=== PATIENT | female | born 1940 | race Caucasian/White ===

== ENCOUNTER 2016-10-03 18:49 | Emergency (ER) | payer BC, MEDICARE ==
[2016-10-03 18:24] LABS: BASOPHILS 0.6 %; BASOPHILS ABSOLUTE 0.05 10/3/uL (0.0-0.16); EOSINOPHILS 1.9 %; EOSINOPHILS ABSOLUTE 0.17 10/3/uL (0.0-0.53); ER CBC TAT 0 Hrs 05 Mins; HEMOGLOBIN 9.1 g/dL (12.0-16.0); IMMATURE GRANULOCYTES 0.6 %; IMMATURE GRANULOCYTES ABSOLUTE 0.05 10/3/uL (0.0-0.11); LYMPHOCYTES 27.7 %; LYMPHOCYTES ABSOLUTE 2.45 10/3/uL (0.67-4.30); MEAN CORPUS HGB CONC 32.7 g/dL (32.0-36.0); MEAN CORPUSCULAR HEMOGLOB 29.4 pg (26.0-34.0); MEAN PLATELET VOLUME 10.9 fL (9.2-13.0); MONOCYTES 6.1 %; MONOCYTES ABSOLUTE 0.54 10/3/uL (0.21-1.20); NEUTROPHILS 63.1 %; NEUTROPHILS ABSOLUTE 5.59 10/3/uL (2.02-8.40); RBC DISTRIBUTION WIDTH 13.9 % (12.0-16.0); RED CELL COUNT 3.09 10/6/uL (4.0-5.6); WHITE BLOOD CELLS 8.9 10/3/uL (4.5-10.5)
[2016-10-03 18:29] LABS: HEMATOCRIT 27.8 % (36.0-48.0); MANUAL DIFF NO %; PLATELET COUNT 573 10/3/uL (150-400)
[2016-10-03 18:36] LABS: INTERNATIONAL NORMAL RATI 1.1 UNITS (-); PROTIME (NOT ORD) 14.1 SEC (12.0-14.5)
[2016-10-03 18:37] LABS: PARTIAL THROMBO TIME 26.9 SEC (22.5-37.2)
[2016-10-03 18:40] LABS: ALBUMIN 2.9 G/DL (3.5-5.0); BUN (BLOOD UREA NITROGEN) 13 MG/DL (6-23); CALCIUM, SERUM 8.8 MG/DL (8.5-10.4); CHEST PAIN PROFILE TAT 0 Hrs 21 Mins; CHLORIDE, SERUM 105 MMOL/L (96-112); CO2 (CARBON DIOXIDE) 25 MMOL/L (24-34); CREATININE 1.17 MG/DL (0.55-1.02); GFR AFRICAN AMERICAN 53 ML/MIN (>=60); GFR NON AFRICAN AMERICAN 46 ML/MIN (>=60); SGOT(AST) 25 U/L (5-40); SGPT(ALT) 18 U/L (5-65); SODIUM, SERUM 139 MMOL/L (135-148); TOTAL PROTEIN 7.9 G/DL (6.0-8.5); TROPONIN I <0.02 NG/ML (<0.05)
[2016-10-03 18:43] LABS: A/G RATIO 0.6 (0.7-1.9); ALKALINE PHOSPHATASE 63 U/L (45-117); DIRECT BILIRUBIN < 0.1 MG/DL (0.0-0.4); GLUCOSE, SERUM 254 MG/DL (60-99); POTASSIUM, SERUM 4.3 MMOL/L (3.5-5.3); TOTAL BILIRUBIN 0.1 MG/DL (0-1.2)
[~2016-10-03 18:49] MED LIST: ACCUNEB INH; AMARYL2 PO; AMARYL4 PO; AMOX250 PO; ASA5GR PO; ASABAYER PO; ASAEC PO; AVANDIA8 MG PO; BUTRANS 10 MCG TOP; CALCIUM; CALCIUM PO; CALTRA600D PO; CYANO1000T PO; DOXEPIN HCL100 MG PO; EFFIENT10 PO; FORTAMET1000 MG PO; FORTAMET500 MG PO; GLUCOPHAGE1000 MG PO; GLUCPH PO; JANUVIA50 PO; LAMICTAL10 PO; LAMICTAL200 MG PO; LANTUS SC; LEXAPRO10 PO; LIVALO4 MG PO; LOP50 PO; LORT7 PO; LOTENSIN HCT1 TA2 PO; NORCO1 TA2 PO; NORCO1 TAB PO; NOVOLOG SC; NOVOPEN SC; OXYCODONE; P5 PO; PRILO PO; PROVENTSOL INH; SAVELLA100 MG PO; SEROQUEL1C PO; SEROQUEL200 MG PO; SINEQUAN 50 MG50 MG PO; TESS PO; VITAMIN D1000 UNI1 PO; VITAMIN D3; VITAMIN D31000 UNIT PO; VITE PO; X25 PO; ZOCOR40 PO; ZOL50 PO
[2016-10-03 20:03] LABS: ASCORBIC ACID (UR NOT ORDER) 40 (NEG); BILIRUBIN, URINE NEGATIVE (NEG); ER URINALYSIS TAT 0 Hrs 08 Mins; KETONE, URINE NEGATIVE (NEG); LEUKOCYTE ESTERASE(NOT OR NEG (NEG); NITRITE (URINE) NEG (NEG); WBC (NOT ORDERED) (RFLEX) 1 (0-5)
[2017-02-12] MEDS ORDERED: NORV10 PO (12:38)
[2017-02-12] MEDS ORDERED: SINEQUAN 50 MG50 MG PO (12:40)
[2017-02-12] MEDS ORDERED: ZOL50 PO (12:40)
[2017-02-12] MEDS ORDERED: LOTENSIN HCT1 TA2 PO (12:41)
[2017-02-12] MEDS ORDERED: LAMICTAL10 PO (12:41)
[2017-02-12] MEDS ORDERED: LANTUS SC (12:42)
[2017-02-12] MEDS ORDERED: NOVOLOG SC (12:42)
[2017-02-12] MEDS ORDERED: NORCO1 TA2 PO (12:43)
[2017-02-12] MEDS ORDERED: ASAB PO (12:44)
[2017-02-22] MEDS ORDERED: VOLTAREN1 % (11:55)
[2017-02-22] MEDS ORDERED: PROTONIX PO (11:58)
[2017-02-22] MEDS ORDERED: MIRALAX POWDER1 PKT PO (11:58)
[2017-02-22] MEDS ORDERED: CONSTULOSE PO (12:01)
== END 2016-10-03 22:40 | disposition home or self-care (01) ==
LOC: ER 18:49
PROVIDERS: Physician Assistant
DX: J18.9 Pneumonia, unspecified organism (principal); R04.2 Hemoptysis; D64.9 Anemia, unspecified; I12.9 Hypertensive chronic kidney disease with stage 1 through stage 4 chronic kidney disease, or unspecified chronic kidney disease; E10.22 Type 1 diabetes mellitus with diabetic chronic kidney disease; N18.9 Chronic kidney disease, unspecified; F32.9 Major depressive disorder, single episode, unspecified; Z88.5 Allergy status to narcotic agent; Z88.8 Allergy status to other drugs, medicaments and biological substances; Z91.09 Other allergy status, other than to drugs and biological substances; Z79.82 Long term (current) use of aspirin; Z79.4 Long term (current) use of insulin; Z79.899 Other long term (current) drug therapy
CPT/HCPCS: 71010; 71275; 80048; 80053; 81001; 82248; 83735; 84484; 85025; 85610; 85730; 87040 ×2; 93005; 99285; Q9967; A9270-GY

== ENCOUNTER 2016-10-06 12:46 | Inpatient (IN) | payer BC, MEDICARE ==
--- NOTE | ~2016-10-06 | HP ---
History And Physical [place] [id number] [facility] [place]. [address] NAME: RENETTA RUST : 42 STATUS : ADM IN [facility]#: [id number] AGE: 76 ADM/REG DATE : 10/06/16 MR#: [id number] REPORT SERV DATE: 10/06/16 DICTATED BY: CHRIS CADENA DATE: 10/06/16 REPORT STATUS : Draft TRANSCRIBED BY: MODL DATE: 10/06/16 DATE OF ADMISSION: 10/06/2016 CHIEF COMPLAINT: Shortness of breath and cough. HISTORY OF PRESENT ILLNESS: This is a 76-year-old lady with a history of hypertension, diabetes, coronary artery disease, fibromyalgia amongst many other medical conditions, presenting with a shortness of breath and cough. The patient has actually been sick for about a week, first started off as a flu. The flu itself was not formally diagnosed, but the patient and the both had the flu-like symptoms at home. While the patient's got better, the patient continued to get worse with worsening shortness of breath and cough. The patient also had a subjective fevers at home. The patient actually came to the ER three days ago and was evaluated and subsequently discharged home. Her ER evaluation revealed a left lower lobe pneumonia. The patient was discharged home with Levaquin. Unfortunately, the patient did not get much better with the p.o. Levaquin at home. The patient had an appointment with her pain management, and they felt that the patient did not look very good, and thus she was referred to her PCP's office. At the PCP's office, the patient was again referred to our hospital for direct admission for a failed outpatient antibiotic therapy for pneumonia. Also on asking for details, the patient apparently had a few falls at home as well as some confusions throughout her illness. REVIEW OF SYSTEMS: The patient had subjective fevers with chills. Also, 14-point review of systems reviewed and negative other than mentioned above. MEDICATIONS: 1. Lotensin and hydrochlorothiazide 20/12.5 one tablet p.o. q.a.m. 2. Effient 10 mg p.o. q.a.m. 3. Aspirin 325 mg p.o. q.a.m. 4. [place] 7.5/325 one tablet p.o. three times daily scheduled. 5. Antivert 25 mg p.o. three times daily. 6. NovoLog per sliding scale. 7. Zoloft 50 mg p.o. q.h.s. 8. Lamictal 200 mg p.o. q.h.s. 9. Doxepin 100 mg p.o. q.h.s. 10.Vitamin D3 5000 units p.o. q.a.m. 11.Keflex 500 mg p.o. b.i.d. x7 days for which the therapy is completed. 12.Levaquin 750 mg p.o. daily x5 days which the therapy was started 3 days ago. 13.Tessalon Perles 200 mg p.o. three times daily p.r.n. 14.Advil 400 mg p.o. three times daily p.r.n. 15.Voltaren 1% topical gel twice daily p.r.n. 16.Lidocaine and prilocaine cream topically daily p.r.n. 17.Aloe vera supplement. 18.Zinc supplement. ALLERGIES: History And Physical [address] [address] NAME: RENETTA RUST : 42 STATUS : ADM IN [facility]#: [id number] AGE: 76 ADM/REG DATE : 10/06/16 MR#: [id number] REPORT SERV DATE: 10/06/16 DICTATED BY: CHRIS CADENA DATE: 10/06/16 REPORT STATUS : Draft TRANSCRIBED BY: TUAN DATE: 10/06/16 1. SILK TAPE. 2. IODINATED-CONTRAST MEDIUM. 3. CODEINE. PAST MEDICAL HISTORY: 1. Coronary artery disease with three cardiac stents. 2. Insulin-dependent diabetes type 2. 3. Hypertension. 4. Hyperlipidemia. 5. Fibromyalgia. 6. IBS. 7. Gastroparesis. PAST SURGICAL HISTORY: 1. C-spine surgery. 2. Cholecystectomy. 3. Hysterectomy. 4. Left ankle surgery. 5. Axillary cyst or abscess surgery. FAMILY HISTORY: Coronary artery disease. SOCIAL HISTORY: The patient has quit smoking in 2000, but the patient has a long and extensive history of smoking for 43 years at 3 packs per day prior to quitting. The patient does not drink alcohol. The patient is at home with her who is at bedside. PHYSICAL EXAMINATION: VITAL SIGNS: Temperature 98.8, blood pressure 115/82, pulse 76, respiratory rate is 16, and saturating 97% on room air. GENERAL: The patient is alert and oriented x3 with no focal neurologic deficits. The patient is awake, does not appear to be in acute distress, and she is cooperative. NECK: No JVD. No lymphadenopathy. Normal thyroid. CHEST: No midline sternotomy scar and no tenderness to palpation. LUNGS: Clear to auscultation bilaterally with normal respiratory effort on room air. The patient does have quite a bit of wheezes only with coughing. CARDIOVASCULAR: Regular rate and rhythm with no murmurs, rubs, or gallops, and PMI is nondisplaced. ABDOMEN: Soft, nontender, with active bowel sounds. No organomegaly. EXTREMITIES: No edema. Normal distal pulses. No calf tenderness. SKIN: Clean, dry, warm, and intact. LABORATORY DATA: Sodium is 139, potassium 4.3, chloride 105, BUN 13, creatinine 1.17, and glucose 254. Please note that these labs are from 10/03/2016 when she was in the ER. LFTs were within normal limits. CBC: White blood cell count is 8.9, hemoglobin 9.1, platelets 573. Again, these are from her ER visit three days ago. Urinalysis was negative. CTA of the chest revealed a left lower lobe pneumonia. History And Physical [address] [address] NAME: RENETTA RUST : 42 STATUS : ADM IN [facility]#: [id number] AGE: 76 ADM/REG DATE : 10/06/16 MR#: [id number] REPORT SERV DATE: 10/06/16 DICTATED BY: CHRIS CADENA DATE: 10/06/16 REPORT STATUS : Draft TRANSCRIBED BY: MODJanneth DATE: 10/06/16 ASSESSMENT: This is a 76-year-old lady with a history of hypertension, diabetes, coronary artery disease, and hyperlipidemia, presenting with a left lower lobe pneumonia. 1. Left lower lobe pneumonia, status post failed outpatient therapy with p.o. Levaquin. 2. Encephalopathies, probably related to above, acute episodes. 3. Falls at home. 4. Diabetes type 2. 5. Hypertension. 6. Coronary artery disease. 7. Chronic pain. 8. The patient also complained of some dysphagia last minute. 9. Anemia. PLAN: My plan is to admit the patient under telemetry monitoring. The patient will be given oxygen support and bronchodilator therapy. The patient will also be given IV fluids and supportive care with antitussives. The patient will be started on IV antibiotics, Rocephin, and Zithromax, and I will complete the workup for an infection to include blood cultures, sputum cultures, procalcitonin level, and urinary antigens for strep and Legionella. For falls, the patient will be seen by Physical Therapy, and for dysphagia, the patient will be screened with bedside swallow eval. For diabetes, I will check hemoglobin A1c and start the patient on insulin sliding scale. For anemia, I will do iron workup. For the rest of stable past medical conditions, including hypertension, diabetes, chronic pain, I will continue home medications. Standard DVT prophylaxis. The patient is full code at this time. YSC/MODL Chris Cadena MD / [id number] CC: MD Jt Reyes M.D.
--- NOTE | ~2016-10-06 | CN ---
Consultation Report [facility] [address] [place]. [address] NAME: RENETTA RUST : 44 STATUS : ADM IN PAT#: [id number] AGE: 76 ADM/REG DATE : 10/06/16 MR#: [id number] REPORT SERV DATE: 10/07/16 DICTATED BY: SHANEL LARA DATE: 10/07/16 REPORT STATUS : Draft TRANSCRIBED BY: MODL DATE: 10/07/16 GI CONSULTATION DATE OF CONSULTATION: 10/07/2016 REASON FOR CONSULTATION: Evaluation and management of anemia and dysphagia. HISTORY OF PRESENT ILLNESS: Ms. Rust is a 76-year-old female patient, who has been seen by Dr. Rivera in the past, but most recently, she has been followed by Dr. Iqbal at [place]. She presented to [facility] with shortness of breath and cough, was diagnosed with left lower lobe pneumonia, and is on IV antibiotic therapy for that. The patient's daughter is present at the bedside and states that she has been sick with the flu- type symptoms roughly for two weeks. Her was sick also, he improved; however, she still continued to have worsening of symptoms of shortness of breath, cough, subjective fevers at home, confusion. She had iron deficiency anemia here at the hospital. She complains of dysphagia, which is not a new finding. She states she had an EGD with Dr. Iqbal in 04/2016 secondary to her dysphagia. Secondary to severe inflammation of the esophagus, dilation of her esophagus was not performed, and she was supposed to follow up with him in several months after being on PPI therapy. She has been sick with various illness per the daughter since that time and has not been able to follow up with him. She complains of having to chew her food an excessive amount of time. She does feel like foods stop in her esophagus midway, but will finally pass. She states that bulky solid foods cause her most of the problems as well as large pills. Of note, she is on Effient and is still presently receiving that and she has a history of coronary artery disease with cardiac stents. I have discussed with Dr. Carey as well as Dr. Cadena, the hospitalist, would need her Effient to be held for at least seven days prior to procedure. As she is not actively bleeding at this time, her stools have not even been hemocculted. She denies any hematemesis, melena, or hematochezia. She admits to coughing up blood at periods of time. She states that she has lost roughly 15 pounds in the last two months, stating that she has nausea upon awakening as well as no desire to eat. At present, we will get an upper GI series barium swallow with tablet to assess her esophagus to rule out any type of new mass or ulcerations. We will begin a proton pump inhibitor, and most likely, she will need to follow up with Dr. Iqbal as an outpatient for further evaluation of her iron deficiency anemia. PAST MEDICAL HISTORY: Positive for coronary artery disease, status post stenting; type 2 diabetes; hypertension; elevated cholesterol; fibromyalgia; irritable bowel syndrome; torticollis; esophagitis. PAST SURGICAL HISTORY: Cervical spine surgery, axillary cyst abscess, cholecystectomy, left ankle surgery, hysterectomy. SOCIAL HISTORY: Past tobacco. No alcohol or illicits. She is and lives independently. Consultation Report [address] [place]. [address] NAME: RENETTA RUST : 44 STATUS : ADM IN [facility]#: [id number] AGE: 76 ADM/REG DATE : 10/06/16 MR#: [id number] REPORT SERV DATE: 10/07/16 DICTATED BY: SHANEL LARA DATE: 10/07/16 REPORT STATUS : Draft TRANSCRIBED BY: TUAN DATE: 10/07/16 FAMILY HISTORY: Noncontributory from a GI standpoint. ALLERGIES: TO IV DYE, CODEINE, AND SILK TAPE. HOME MEDICATIONS: Aspirin; Lotensin; Tessalon; [place] liquid; Keflex; vitamin D; Voltaren; Effient; Zoloft; elderberry, Echinacea, and zinc lozenges; [place]; [place]; Advil; NovoLog; Lamictal; Levaquin; Antivert. REVIEW OF SYSTEMS: A 10-point review of systems has been obtained with pertinent positives being addressed in the history of present illness. PERTINENT LABORATORY DATA: Sodium 145, potassium is 4, BUN is 13, creatinine 0.98. White count 4.7, hemoglobin is 8.4, hematocrit is 26.4, platelet count is 529. Iron 30, iron binding capacity 264, percent iron sat 11, ferritin is 52. Hemoglobin in 05/2016 was noted to be 10.8. She had a CTA of the chest, showing left lower lobe pneumonia. PHYSICAL EXAMINATION: VITAL SIGNS: Temperature 98.6, pulse 65, respirations 14, and blood pressure is 145/67. NEURO: Reveals an alert female, resting in bed with no obvious focal deficits. GENERAL: Cooperative, in no apparent distress. Awake, alert, and oriented x3. HEAD, EARS, EYES, NOSE, AND THROAT: Anicteric. Pupils equal, round, reactive to light and accommodation. Normocephalic and atraumatic. NECK: No JVD. No palpable nodes. LUNGS: Coarse. She has a right crackle on expiration. She has a dry cough. She has diminished breath sounds in the left base. CARDIOVASCULAR SYSTEM: Regular rate and rhythm. ABDOMEN: Soft. Mildly tender to palpation in the epigastric region. Active bowel sounds. No organomegaly appreciated. EXTREMITIES: No edema. Normal distal pulses. ASSESSMENT: 1. Anemia of iron deficiency. 2. Dysphagia, solid type. 3. Left lower lobe pneumonia, being treated with IV Zithromax. 4. Weakness and falls. PLAN: 1. I had a long discussion with the patient and the daughter. They want the patient to be scoped while inpatient. However, she is on Effient and this would need to be held for seven days prior to any endoscopy. I did discuss with Dr. Cadena, hospitalist, who is on the case, as well as I did discuss with Dr. Carey. 2. We will get an upper GI series barium swallow with tablet. 3. Begin her on a proton pump inhibitor twice a day. She will most likely need to follow Consultation Report [address] [place]. [address] NAME: RENETTA RUST : 44 STATUS : ADM IN PAT#: [id number] AGE: 76 ADM/REG DATE : 10/06/16 MR#: [id number] REPORT SERV DATE: 10/07/16 DICTATED BY: SHANEL LARA DATE: 10/07/16 REPORT STATUS : Draft TRANSCRIBED BY: MODL DATE: 10/07/[address] Iqbal as an outpatient for further evaluation of her iron deficiency anemia with EGD and colonoscopy. JAMIE/TUAN SHARON Ashley / [id number] CC: MD Jt Reyes M.D.
--- NOTE | ~2016-10-06 | DS ---
Discharge Summary [facility] [address] [facility]. [address] NAME: RENETTA RUST : 44 STATUS : DIS IN PAT#: [id number] AGE: 76 ADM/REG DATE : 10/06/16 MR#: [id number] REPORT SERV DATE: 10/09/16 DICTATED BY: CHRIS BANERJEE DATE: 10/08/16 REPORT STATUS : Draft TRANSCRIBED BY: MODL DATE: 10/08/16 ADMISSION DATE: 10/06/2016 DISCHARGE DATE: 10/08/2016 DISCHARGE DIAGNOSES: 1. Iron deficiency anemia, without evidence of overt bleeding. 2. Left lower lobe pneumonia. 3. Fatigue and encephalopathy episodes at home, likely related to above. 4. Diabetes type 2. 5. Hypertension. 6. Coronary artery disease. 7. Chronic pain. 8. Dysphagia. CONSULTS: GI. PROCEDURES: None. HOSPITAL COURSE: This is a 76-year-old lady who was directly admitted to the hospital from Dr. Rubio's office for a persistent pneumonia that has failed outpatient therapy. For details, please refer to my own H and P dated 10/06/2016. Although symptomatically, it was believed the patient initially had a pneumonia that has failed outpatient treatment. By the second day of the hospital stay, it was evident that the patient was suffering more from symptomatic anemia. The patient had normal white blood cell count, and the patient was comfortable on room air and did not require any oxygen support. Upon further history gathering, it was evident that the patient has been closely following with GI as an outpatient, Dr. Galan, for GI issues. The patient actually has an appointment to follow up with him in the near future also. Our in-house return clerk was consulted, who actually wanted to perform an upper endoscopy; however, it was realized the patient was on Effient, which will have to be held for a week before attempting an upper endoscopy in the absence of acute bleeding. Overall, the patient was feeling better, still maintained on antibiotics and some steroids. The patient did not have any difficulty getting up and around. It was felt that the patient is probably better taken care of as an outpatient. 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 As the patient already has an outpatient appointment with Dr. Galan, she was advised to continue to follow up with him. Also after the barium swallow, the patient tolerated an entire meal without any difficulty. The patient is thus being discharged home with iron supplementation to be followed closely as an outpatient. The patient was instructed to also continue and finish the course of Levaquin that she was prescribed to take prior to being admitted here to the hospital. DISCHARGE MEDICATIONS: The only medication change is that the patient will be put on iron replacement therapy. Discharge Summary [facility] [address] [place]. [address] NAME: RENETTA RUST : 44 STATUS : DIS IN PAT#: [id number] AGE: 76 ADM/REG DATE : 10/06/16 MR#: [id number] REPORT SERV DATE: 10/09/16 DICTATED BY: CHRIS BANEREJE DATE: 10/08/16 REPORT STATUS : Draft TRANSCRIBED BY: TUAN DATE: 10/08/16 DISPOSITION: Discharged to home. FOLLOWUP: 1. Please follow up with Dr. Rubio, PCP in the next one to two weeks. 2. Please follow up with Dr. Galan in the next one to two weeks. A total of 30 minutes spent in coordinating this patient's discharge today. Hope/TUAN Chris Banerjee MD / [id number] CC: MD Jt Reyes M.D.
[2016-10-06] MEDS ORDERED: LOTENSIN HCT1 TA2 PO (13:30)
[2016-10-06] MEDS ORDERED: EFFIENT10 PO (13:31)
[2016-10-06] MEDS ORDERED: ASA5GR PO (13:31)
[2016-10-06] MEDS ORDERED: NORCO1 TA2 PO (13:31)
[2016-10-06] MEDS ORDERED: MCZ25 PO (13:32)
[2016-10-06] MEDS ORDERED: NOVOLOG SC (13:32)
[2016-10-06] MEDS ORDERED: SINEQUAN 50 MG50 MG PO (13:33)
[2016-10-06] MEDS ORDERED: ZOL50 PO (13:33)
[2016-10-06] MEDS ORDERED: LAMICTAL200 MG PO (13:33)
[2016-10-06] MEDS ORDERED: VITAMIN D31000 UNIT PO (13:34)
[2016-10-06] MEDS ORDERED: K500 PO (13:34)
[2016-10-06] MEDS ORDERED: LEVAQUIN750 MG PO (13:35)
[2016-10-06] MEDS ORDERED: [UNRECOGNIZED DRUG - OTHER] (13:36)
[2016-10-06] MEDS ORDERED: TESSALON200 MG PO (13:37)
[2016-10-06] MEDS ORDERED: ADVIL PO (13:38)
[2016-10-06] MEDS ORDERED: VOLTAREN1 % TOP (13:40)
[2016-10-06] MEDS ORDERED: ECHINACEA PO (13:41)
[2016-10-06] MEDS ORDERED: ELDERBERRY PO (13:41)
[2016-10-06] MEDS ORDERED: PRILOCAINE (13:41)
[2016-10-06] MEDS ORDERED: LIDOCAINE (13:41)
[2016-10-06] MEDS ORDERED: ZINC PO (13:42)
[2016-10-06 17:14] LABS: BASOPHILS 1.1 %; BASOPHILS ABSOLUTE 0.07 10/3/uL (0.0-0.16); EOSINOPHILS 2.2 %; EOSINOPHILS ABSOLUTE 0.14 10/3/uL (0.0-0.53); HEMATOCRIT 27.7 % (36.0-48.0); HEMOGLOBIN 8.9 g/dL (12.0-16.0); IMMATURE GRANULOCYTES 0.6 %; IMMATURE GRANULOCYTES ABSOLUTE 0.04 10/3/uL (0.0-0.11); LYMPHOCYTES 25.5 %; MEAN CORPUS HGB CONC 32.1 g/dL (32.0-36.0); MEAN CORPUSCULAR HEMOGLOB 28.9 pg (26.0-34.0); MEAN CORPUSCULAR VOLUME 89.9 fL (80-100); MEAN PLATELET VOLUME 10.4 fL (9.2-13.0); MONOCYTES 10.8 %; MONOCYTES ABSOLUTE 0.68 10/3/uL (0.21-1.20); NEUTROPHILS 59.8 %; NEUTROPHILS ABSOLUTE 3.75 10/3/uL (2.02-8.40); PLATELET COUNT 558 10/3/uL (150-400); RBC DISTRIBUTION WIDTH 14.1 % (12.0-16.0); RED CELL COUNT 3.08 10/6/uL (4.0-5.6); WHITE BLOOD CELLS 6.3 10/3/uL (4.5-10.5)
[2016-10-06 17:17] LABS: MANUAL DIFF NO %
[2016-10-06 17:29] LABS: BUN (BLOOD UREA NITROGEN) 16 MG/DL (6-23); CALCIUM, SERUM 9.4 MG/DL (8.5-10.4); CHLORIDE, SERUM 107 MMOL/L (96-112); CO2 (CARBON DIOXIDE) 26 MMOL/L (24-34); CREATININE 1.33 MG/DL (0.55-1.02); FERRITIN 56 NG/ML (8-252); GFR AFRICAN AMERICAN 46 ML/MIN (>=60); GFR NON AFRICAN AMERICAN 39 ML/MIN (>=60); IRON BINDING CAPACITY 301 MCG/DL (225-410); POTASSIUM, SERUM 4.1 MMOL/L (3.5-5.3); SODIUM, SERUM 142 MMOL/L (135-148)
[2016-10-06 17:30] LABS: GLUCOSE, SERUM 200 MG/DL (60-99)
[2016-10-06 19:37] LABS: PROCALCITONIN <0.05 ng/mL (<0.5)
[2016-10-07 06:59] LABS: HEMATOCRIT 26.4 % (36.0-48.0); HEMOGLOBIN 8.4 g/dL (12.0-16.0); MEAN CORPUS HGB CONC 31.8 g/dL (32.0-36.0); MEAN CORPUSCULAR HEMOGLOB 28.8 pg (26.0-34.0); MEAN CORPUSCULAR VOLUME 90.4 fL (80-100); MEAN PLATELET VOLUME 10.1 fL (9.2-13.0); PLATELET COUNT 523 10/3/uL (150-400); RBC DISTRIBUTION WIDTH 14.1 % (12.0-16.0); RED CELL COUNT 2.92 10/6/uL (4.0-5.6); WHITE BLOOD CELLS 4.7 10/3/uL (4.5-10.5)
[2016-10-07 07:02] LABS: MANUAL DIFF YES %
[2016-10-07 07:22] LABS: % IRON SAT 11 % (20-50); BUN (BLOOD UREA NITROGEN) 13 MG/DL (6-23); CALCIUM, SERUM 8.2 MG/DL (8.5-10.4); CHLORIDE, SERUM 112 MMOL/L (96-112); CO2 (CARBON DIOXIDE) 25 MMOL/L (24-34); CREATININE 0.98 MG/DL (0.55-1.02); FERRITIN 52 NG/ML (8-252); GFR AFRICAN AMERICAN 66 ML/MIN (>=60); GFR NON AFRICAN AMERICAN 57 ML/MIN (>=60); GLUCOSE, SERUM 144 MG/DL (60-99); IRON BINDING CAPACITY 264 MCG/DL (225-410); IRON, SERUM 30 MCG/DL (35-150); SODIUM, SERUM 145 MMOL/L (135-148)
[2016-10-07 07:22] LABS: BAND NEUTROPHILS 1 %; EOSINOPHILS 2 %; EOSINOPHILS ABSOLUTE (CALC) 0.09 10/3/uL (0.0-0.53); LYMPHOCYTES 26 %; LYMPHOCYTES ABSOLUTE (CALC) 1.22 10/3/uL (0.67-4.30); MONOCYTES 8 %; MONOCYTES ABSOLUTE (CALC) 0.38 10/3/uL (0.21-1.20); NEUTROPHILS ABSOLUTE (CALC) 3.01 10/3/uL (2.02-8.40); SEGMENTED NEUTROPHIL (0) 63 %; TOTAL NUCLEATED CELLS 100
[2016-10-07 07:23] LABS: HYPOCHROMIA 1+ (3-10/OIF) (0-2/OIF); MICROCYTES 1+ (5-10/OIF) (0-5/OIF); PLATELET ESTIMATE SLT INC (ADEQUATE)
[2016-10-07 09:16] LABS: RETICULOCYTE COUNT 1.8 % (0.5-2.9)
[2016-10-07 09:17] LABS: RETICULOCYTE COUNT ABSOLUTE 51.8 10/3/uL (20.2-119.8)
[2016-10-08] MEDS ORDERED: FERROUS SULF325 M1 PO (11:29)
[2016-10-08] MEDS ORDERED: IBU-200200 MG PO (11:58)
[2016-10-08] MEDS ORDERED: K500 PO (11:59)
[2017-02-12] MEDS ORDERED: NORV10 PO (12:38)
[2017-02-12] MEDS ORDERED: SINEQUAN 50 MG50 MG PO (12:40)
[2017-02-12] MEDS ORDERED: ZOL50 PO (12:40)
[2017-02-12] MEDS ORDERED: LAMICTAL10 PO (12:41)
[2017-02-12] MEDS ORDERED: LOTENSIN HCT1 TA2 PO (12:41)
[2017-02-12] MEDS ORDERED: NOVOLOG SC (12:42)
[2017-02-12] MEDS ORDERED: LANTUS SC (12:42)
[2017-02-12] MEDS ORDERED: NORCO1 TA2 PO (12:43)
[2017-02-12] MEDS ORDERED: ASAB PO (12:44)
[2017-02-22] MEDS ORDERED: VOLTAREN1 % (11:55)
[2017-02-22] MEDS ORDERED: PROTONIX PO (11:58)
[2017-02-22] MEDS ORDERED: MIRALAX POWDER1 PKT PO (11:58)
[2017-02-22] MEDS ORDERED: CONSTULOSE PO (12:01)
== END 2016-10-08 16:36 | disposition home or self-care (01) | DRG 193 ==
LOC: 4SO 12:46
PROVIDERS: Internal Medicine
DX: J18.1 Lobar pneumonia, unspecified organism (principal); G93.49 Other encephalopathy; K31.84 Gastroparesis; E11.43 Type 2 diabetes mellitus with diabetic autonomic (poly)neuropathy; R13.10 Dysphagia, unspecified; D50.9 Iron deficiency anemia, unspecified; I10 Essential (primary) hypertension; I25.10 Atherosclerotic heart disease of native coronary artery without angina pectoris; G89.29 Other chronic pain; M79.7 Fibromyalgia; Z91.81 History of falling; Z79.82 Long term (current) use of aspirin; Z79.891 Long term (current) use of opiate analgesic; Z79.4 Long term (current) use of insulin; Z91.041 Radiographic dye allergy status; Z88.5 Allergy status to narcotic agent; Z91.048 Other nonmedicinal substance allergy status; Z95.5 Presence of coronary angioplasty implant and graft; E78.5 Hyperlipidemia, unspecified; K58.9 Irritable bowel syndrome, unspecified; Z87.891 Personal history of nicotine dependence; Z79.02 Long term (current) use of antithrombotics/antiplatelets; R53.1 Weakness; K22.4 Dyskinesia of esophagus
CPT/HCPCS: 71010; 71275; 74246; 80048; 80053; 81001; 82248; 82728; 82962; 83036; 83540; 83550; 83735; 84145; 84484; 85025; 85045; 85610; 85730; 87040; 87070; 87205; 87449; 93005; 94640; 97161-GP; 99285; A9270-GY; C9113; G8978-CJ-GP; G8979-CJ-GP; G8980-CJ-GP; J0456; Q9967